=== PATIENT | male | born 1990 | race Caucasian/White ===

== ENCOUNTER 2017-04-08 17:11 | Emergency (ER) | payer OTHER ==
[2017-04-08 17:28] VITALS: RESP 14; TEMP 97.9
--- NOTE | 2017-04-08 17:42 | EDPHY ---
H & P Stated Complaint: arm numbness Time Seen by Provider: 04/08/17 17:25 HPI/ROS: CHIEF COMPLAINT: Tingling HISTORY OF PRESENT ILLNESS: Patient is a 26-year-old healthy man who comes to the emergency department complaining that he has had tingling in his left hand and momentarily in his left face. He states that he was at work sitting in a chair when he began noticing that his arm seemed like it was starting to fall asleep. He then became anxious and worried about stroke symptoms. He also developed some tingling in the left side of his face. He did not have any slurred speech facial deficits when he asked coworkers. He did not have any decreased strength. He is able to ambulate without difficulty. He denies headache. Does not have a history of migraines. He does not have a history of seizures. He does not have a history of cardiac disease. He has a benign murmur and states that he had an echo as a child that was reported as normal. He has not had a fever but has had a mild viral illness for the last 2 weeks. He states that his facial symptoms only lasted for about 30 minutes with that his arm has been persistent for about 2 hours. It is primarily in the 4th and 5th digits and forearm. No vision changes or hearing changes. No recent vaccinations. History of MS REVIEW OF SYSTEMS: Constitutional: denies: chills, fever, recent illness, recent injury EENTM: denies: blurred vision, double vision, nose congestion Respiratory: denies: cough, shortness of breath Cardiac: denies: chest pain, irregular heart rate, lightheadedness, palpitations Gastrointestinal/Abdominal: denies: abdominal pain, diarrhea, nausea, vomiting, blood streaked stools Genitourinary: denies: dysuria, frequency, hematuria, pain Musculoskeletal: See HPI Skin: denies: lesions, rash, jaundice, bruising Neurological: See HPI denies: headache, dizziness, weakness Hematologic/Lymphatic: denies: blood clots, easy bleeding, easy bruising Immunologic/allergic: denies: HIV/AIDS, transplant EXAM: GENERAL: Well-appearing, well-nourished and in no acute distress. HEAD: Atraumatic, normocephalic. EYES: Pupils equal round and reactive to light, extraocular movements intact, sclera anicteric, conjunctiva are normal. ENT: TMs normal, nares patent, oropharynx clear without exudates. Moist mucous membranes. NECK: Normal range of motion, supple without lymphadenopathy or JVD. LUNGS: Breath sounds clear to auscultation bilaterally and equal. No wheezes rales or rhonchi. HEART: Regular rate and rhythm without murmurs, rubs or gallops. ABDOMEN: Soft, nontender, normoactive bowel sounds. No guarding, no rebound. No masses appreciated. BACK: No CVA tenderness, no spinal tenderness, step-offs or deformities EXTREMITIES: Normal range of motion, no pitting or edema. No clubbing or cyanosis. NEUROLOGICAL: Cranial nerves II through XII grossly intact. Normal speech, normal gait. 5/5 strength, normal movement in all extremities, normal sensation , normal reflexes, normal sensation to light touch, no pronator drift, normal ambulation and heel to toe. Normal cerebellar exam PSYCH: Normal mood, normal affect. SKIN: Warm, dry, normal turgor, no visible rashes or lesions. Source: Patient Exam Limitations: No limitations - Personal History Current Tetanus Diphtheria and Acellular Pertussis (TDAP): Unsure - Medical/Surgical History Hx Asthma: No Hx Chronic Respiratory Disease: No Hx Diabetes: No Hx Cardiac Disease: No Hx Renal Disease: No Hx Cirrhosis: No Hx Alcoholism: No Hx HIV/AIDS: No Hx Splenectomy or Spleen Trauma: No Other PMH: murmur - Family History Significant Family History: No pertinent family hx - Social History Smoking Status: Never smoked Alcohol Use: Sober Constitutional: Initial Vital Signs Temperature (C) 36.6 C 04/08/17 17:26 Heart Rate 76 04/08/17 17:26 Respiratory Rate 14 04/08/17 17:26 Blood Pressure 141/90 H 04/08/17 17:26 O2 Sat (%) 95 04/08/17 17:26 O2 Delivery Mode Room Air Allergies/Adverse Reactions: No Known Allergies Allergy (Unverified 04/08/17 17:26) Home Medications: Medication Instructions Recorded NK [No Known Home Meds] 04/08/17 Medical Decision Making - Diagnostics EKG Interpretation: An EKG obtained and was read and documented in trace view. Please see trace view for full reading and report. Diffuse mild ST elevation consistent with early repolarization, no reciprocal changes ED Course/Re-evaluation: 6:15 p.m. the patient is currently asymptomatic. His NIH stroke score is 0. His lab work and EKG are reassuring. At this point we decided to defer any further testing and observe him at home. I discussed with him indications for returning to the emergency department. I do not think that this represents a cardiac event or a CVA. We discussed the possibilities of seizures, atypical migraines, MS, peripheral neuropathy etc. Will have him follow up with Neurology. Differential Diagnosis: Partial list of the Differential diagnosis considered include but were not limited to; atypical migraine, peripheral neuropathy, electrolyte abnormality, anxiety and although unlikely based on the history and physical exam, I also considered seizure, CVA, acute coronary disease, PE. I discussed these differential diagnoses and the plan with the patient as well as the usual and expected course. The patient understands that the diagnosis is provisional and that in medicine we are not always correct and that further workup is often warranted. Usual and customary warnings were given. All of the patient's questions were answered. The patient was instructed to return to the emergency department should the symptoms at all worsen or return, otherwise to followup with the physician as we discussed. - Data Points Laboratory Results: Laboratory Results 04/08/17 17:42 04/08/17 17:42 04/08/17 04/08/17 17:42 17:42 WBC 8.30 10^3/uL 10^3/uL (3.80-9.50) RBC 5.17 10^6/uL 10^6/uL (4.40-6.38) Hgb 16.2 g/dL g/dL (13.7-17.5) Hct 46.7 % % (40.0-51.0) MCV 90.3 fL fL (81.5-99.8) MCH 31.3 pg pg (27.9-34.1) MCHC 34.7 g/dL g/dL (32.4-36.7) RDW 11.5 % % (11.5-15.2) Plt Count 282 10^3/uL 10^3/uL (150-400) MPV 8.5 fL L fL (8.7-11.7) Neut % (Auto) 67.8 % % (39.3-74.2) Lymph % (Auto) 22.7 % % (15.0-45.0) Chambers % (Auto) 7.6 % % (4.5-13.0) Eos % (Auto) 0.8 % % (0.6-7.6) Baso % (Auto) 0.7 % % (0.3-1.7) Nucleat RBC Rel Count 0.0 % % (0.0-0.2) Absolute Neuts (auto) 5.63 10^3/uL 10^3/uL (1.70-6.50) Absolute Lymphs (auto) 1.88 10^3/uL 10^3/uL (1.00-3.00) Absolute Monos (auto) 0.63 10^3/uL 10^3/uL (0.30-0.80) Absolute Eos (auto) 0.07 10^3/uL 10^3/uL (0.03-0.40) Absolute Basos (auto) 0.06 10^3/uL 10^3/uL (0.02-0.10) Absolute Nucleated RBC 0.00 10^3/uL 10^3/uL (0-0.01) Immature Gran % 0.4 % % (0.0-1.1) Immature Gran # 0.03 10^3/uL 10^3/uL (0.00-0.10) Sodium 141 mEq/L mEq/L (134-144) Potassium 4.1 mEq/L mEq/L (3.5-5.2) Chloride 100 mEq/L mEq/L (97-110) Carbon Dioxide 24 mEq/l mEq/l (22-31) Anion Gap 17 mEq/L H mEq/L (8-16) BUN 20 mg/dL mg/dL (7-23) Creatinine 0.7 mg/dL mg/dL (0.7-1.3) Estimated GFR > 60 Glucose 92 mg/dL mg/dL (70-100) Calcium 9.4 mg/dL mg/dL (8.5-10.4) Departure - Departure Disposition: Home, Routine, Self-Care Clinical Impression: Paresthesia Condition: Good Instructions: Paresthesia (ED) Referrals: NONE *PRIMARY CARE P,. [Primary Care Provider] - As per Instructions Ulysses Hansen MD [Medical Doctor] - As per Instructions
--- NOTE | 2017-04-08 17:45 | CPEKG ---
Heart Rate: 64 RR Interval: 938 P-R Interval: 172 QRSD Interval: 86 QT Interval: 380 QTC Interval: 392 P Bates: 65 QRS Bates: 63 T Wave Bates: 15 EKG Severity - NORMAL ECG - EKG Impression: SINUS RHYTHM EKG Impression: ST ELEV, PROBABLE NORMAL EARLY REPOL PATTERN Electronically Signed By: Mitul Hoffman 08-Apr-2017 17:58:59
[2017-04-08 17:49] LABS: % IMMATURE GRANULYOCYTES 0.4 % (0.0-1.1); ABSOLUTE IMMATURE GRANULOCYTES 0.03 10^3/uL (0.00-0.10); ADD DIFF? NO; ADD MORPH? NO; ADD SCAN? NO; ATYPICAL LYMPHOCYTE FLAG 0 (0-99); FRAGMENT RBC FLAG 0 (0-99); HEMATOCRIT 46.7 % (40.0-51.0); HEMOGLOBIN 16.2 g/dL (13.7-17.5); LEFT SHIFT FLG 0 (0-99); LIPEMIA HEMOLYSIS FLAG 90 (0-99); MEAN CELL HEMOGLOBIN 31.3 pg (27.9-34.1); MEAN CELL HEMOGLOBIN CONCENTR. 34.7 g/dL (32.4-36.7); MEAN CELL VOLUME 90.3 fL (81.5-99.8); MEAN PLATELET VOLUME 8.5 fL (8.7-11.7); PLATELET CLUMPS FLAG 10 (0-99); PLATELET COUNT 282 10^3/uL (150-400); RED BLOOD CELL COUNT 5.17 10^6/uL (4.40-6.38); RED CELL DISTRIBUTION WIDTH 11.5 % (11.5-15.2)
[2017-04-08 18:02] LABS: ANION GAP 17 mEq/L (8-16); CALCIUM 9.4 mg/dL (8.5-10.4); CARBON DIOXIDE 24 mEq/l (22-31); CHLORIDE 100 mEq/L (97-110); CREATININE 0.7 mg/dL (0.7-1.3); GLOMERULAR FILTRATION RATE > 60; GLUCOSE 92 mg/dL (70-100); POTASSIUM 4.1 mEq/L (3.5-5.2); SODIUM 141 mEq/L (134-144)
[2017-04-08 18:33] VITALS: BP 129/60; PULSE 88; O2SAT 96
== END 2017-04-08 18:31 | disposition home or self-care (01) ==
LOC: CED 17:11
DX: R20.2 Paresthesia of skin (principal)
CPT/HCPCS: 80048-PO; 85025-PO

== ENCOUNTER 2019-01-07 20:23 | Emergency (ER) | payer OTHER ==
--- NOTE | 2019-01-07 20:32 | EDPHY ---
H & P Smoking Status: Never smoked Time Seen by Provider: 01/07/19 20:31 HPI/ROS: Chief complaint. Chest pain HPI. 28-year-old male presents to the emergency department with chest discomfort for 2 days. 2 nights ago he initially had some tingling of his scalp and face and then notice racing heartbeat and then cold and shaking. His symptoms were better yesterday but he continued to have some discomfort. Initially his discomfort was right-sided and today he had right-sided tightness radiating to his right shoulder. Then 1 hr ago while riding an exercise bike he noticed sharp left side pain the did not radiate. He describes as tightness as well as sharp. Had slight shortness of breath. He had similar symptoms over the past few months. No fever cough. His symptoms he feels seemed to be worse with exertion. Not with deep breathing or position. Does feel slight chest wall discomfort. He also notes that his heart rate tonight seem to be 10- 20 beats faster than normal for the exertion that he was performing. He had a heart murmur as a child and had normal echocardiogram. The patient has no history of hypertension or diabetes. No family history of premature coronary artery disease. No recent travel or unusual leg pain or swelling. He has had some knee pain that bothers him from time to time that seemed to flare up this week. ROS 10 systems were reviewed and negative with the exception of the elements mentioned in the history of present illness (Geovanni Joseph) Past Medical/Surgical History: Healthy No family history early coronary artery disease (Geovanni Joseph) Social History: , nonsmoker, no alcohol (Geovanni Joseph) Physical Exam: General Appearance: Alert well-developed male mild distress vital signs are stable Eyes: Pupils equal and round no pallor or injection. ENT, Mouth: Mucous membranes are moist. Respiratory: There are no retractions, lungs are clear to auscultation. Cardiovascular: Regular rate and rhythm. 1 to 2/6 systolic decrescendo murmur Gastrointestinal: Abdomen is soft and nontender, no masses, bowel sounds normal. Neurological: Awake and alert, sensory and motor exams grossly normal. Skin: Warm and dry, no rashes. Musculoskeletal: Neck is supple nontender. Extremities symmetrical, full range of motion. Psychiatric: Patient is oriented X 3, there is no agitation. (Geovanni Joseph) Constitutional: Initial Vital Signs Temperature (C) 36.6 C 01/07/19 20:30 Heart Rate 80 01/07/19 20:30 Respiratory Rate 18 01/07/19 20:30 Blood Pressure 145/91 H 01/07/19 20:30 O2 Sat (%) 98 01/07/19 20:30 O2 Delivery Mode Room Air Allergies/Adverse Reactions: No Known Allergies Allergy (Unverified 04/08/17 17:26) Home Medications: Medication Instructions Recorded NK [No Known Home Meds] 04/08/17 Medical Decision Making - Diagnostics EKG Interpretation: Repeat EKG shows normal sinus rhythm with a rate of 52. Normal intervals and axis. Similar T-wave inversions and likely early repol. No acute ST T-wave changes to suggest ischemia or infarct. Impression unchanged EKG. (Meghann Parker) EKG interpreted by me shows normal sinus rhythm normal interval and axis. QRS is normal. No significant ST elevation or depression. LVH by voltage. Inverted T-waves in lead 3 and AVF. Rate is 76 This is not significantly changed including the T-wave inversions from previous EKG March 2017 (Geovanni Joseph) Imaging Results: One-view chest x-ray interpreted by me as normal (Geovanni Joseph) Procedures: IV normal saline, monitor (Geovanni Joseph) ED Course/Re-evaluation: Reviewed EKG and previous. Discussed findings with patient. Reviewed follow- up plan and return precautions. Stable for discharge. (Meghann Parker) Point of care troponin is 0 Point of care CBC shows a 6.36 white blood cell count with hematocrit 45.5 Point of care chemistry panel is normal Serial evaluations patient is stable. Repeat troponin is 0.01 Patient and I discussed imaging lab EKG findings. We discussed treatment plan including criteria for return importance follow-up and further evaluation. He expresses understanding agreement I consulted and discussed case with Dr. Izaguirre for Cardiology. Patient will be seen at 3:15 a.m. Tuesday afternoon. I called the patient on Tuesday morning and the patient is stable though has had some recurrences. He tells me that his symptoms now seem to be worse with eating and relieved by burping. He is encouraged to keep the follow-up evaluation with Cardiology (Geovanni Joseph) Differential Diagnosis: Heart score is 1 for EKG abnormalities, a 1 for history of increased pain with exertion, 0 for risk factors, 0 for troponin, 0 for age. Total 2 (Geovanni Joseph) Care Turn Over: care to Dr. Parker at 2300 (Geovanni Joseph) - Data Points Medications Given: Discontinued Medications Sodium Chloride (Ns) 1,000 mls @ 0 mls/hr IV EDNOW ONE; Wide Open PRN Reason: Protocol Stop: 01/07/19 21:31 Last Admin: 01/07/19 21:35 Dose: 1,000 mls Point of Care Test Results: CBC CBC Collection Date 01/07/19 CBC Collection Time 20:40 WBC 6.36 RBC 4.98 HGB 15.9 HCT 45.5 PLT 236 Neut # 3.94 Neut 62 LYMPH # 1.68 LYMPH 26.4 MCV 91.4 Chemistry 01/07/19 01/07/19 01/07/19 22:56 20:47 20:46 POC Sodium 141 mEq/L mEq/L (135-145) POC Potassium 3.5 mEq/L mEq/L (3.3-5.0) POC Chloride 102.0 mEq/L mEq/L (97-110) POC Total CO2 25 mEq/L mEq/L (22-31) POC BUN 15 mg/dL mg/dL (7-23) POC Creatinine 0.9 mg/dL mg/dL (0.7-1.3) POC Glucose 105 mg/dL H mg/dL (70-100) POC Calcium 9.5 mg/dL mg/dL (8.5-10.4) POC Troponin I 0.01 ng/mL ng/mL 0.00 ng/mL ng/mL (0.00-0.08) (0.00-0.08) Departure - Departure Disposition: Home, Routine, Self-Care Clinical Impression: Chest pain Condition: Good Instructions: Chest Pain (ED) Additional Instructions: Easy activity next 1-2 days. Return for worsening chest discomfort or trouble breathing Call home care aide tomorrow to arrange follow-up evaluation in the next 1-2 days. Referrals: NONE *PRIMARY CARE P,. [Primary Care Provider] - As per Instructions Patito Mann MD [Medical Doctor] - 1-2 days without fail
--- NOTE | 2019-01-07 21:29 | CPEKG ---
Test Reason : OPEN Blood Pressure : / mmHG Vent. Rate : 076 BPM Atrial Rate : 076 BPM P-R Int : 196 ms QRS Dur : 101 ms QT Int : 374 ms P-R-T Axes : 076 065 -04 degrees QTc Int : 421 ms Sinus rhythm Biatrial enlargement Left ventricular hypertrophy Borderline T abnormalities, inferior leads Confirmed by Geovanni Joseph ([id number]) on 01/07/2019 9:28:30 PM Referred By: Geovanni Joseph Confirmed By:Geovanni Joseph
[2019-01-07] MEDS ORDERED: NS 1,000 ML IV ONE (21:30)
[2019-01-07 23:43] VITALS: BP 129/67
--- NOTE | 2019-01-07 23:49 | CPEKG ---
Test Reason : OPEN Blood Pressure : / mmHG Vent. Rate : 052 BPM Atrial Rate : 051 BPM P-R Int : 177 ms QRS Dur : 095 ms QT Int : 427 ms P-R-T Axes : 053 052 006 degrees QTc Int : 397 ms Sinus rhythm Probable left ventricular hypertrophy ST elev, probable normal early repol pattern Confirmed by Meghann Parker ([id number]) on 01/07/2019 11:48:56 PM Referred By: TIMOTHY OLMEDO Confirmed By:Meghann Parker
== END 2019-01-07 23:57 | disposition home or self-care (01) ==
LOC: CED 20:23
DX: R07.9 Chest pain, unspecified (principal); E86.9 Volume depletion, unspecified
CPT/HCPCS: 71045-PO; 80048-ER; 84484-ER; 96360-ER